=== PATIENT | male | born 1950 | race Caucasian/White ===

== ENCOUNTER 2018-02-26 11:12 | Emergency (ER) | payer SELFPAY ==
[~2018-02-26] VITALS: Ht 182.9 cm; Wt 100.0 kg
[2018-02-26] MEDS ORDERED: DEXTRAN 70 0.1%/HYPROMELL 0.3% 0.9 ML OPHTHALMIC SOLUTION [PF] OD ONE (13:45)
[2018-02-26] MEDS ORDERED: CARBAMIDE PEROXIDE 6.5% 15 ML OTIC SOLUTION AD ONE (13:45)
[2018-02-26] MEDS ORDERED: PredniSONE 10 MG TABLET PO ONE (15:45)
[2018-02-26 15:59] VITALS: BP 115/75
== END 2018-02-26 16:03 | disposition home or self-care (01) ==
LOC: EMS 11:15
DX: G51.0 Bell's palsy (principal); H61.21 Impacted cerumen, right ear
CPT/HCPCS: 69209; 99284; J7512